=== PATIENT | female | born 1995 | race Caucasian/White ===

== ENCOUNTER 2017-08-18 16:18 | Outpatient (CLI) | payer OTHER ==
[2017-08-18 19:05] LABS: RUPTURE FETAL MEMBRANES NEGATIVE (NEGATIVE)
[2017-08-18] MEDS: LACTATED RINGER'S 1,000 ML IV ×2 (19:26→20:00)
[2017-08-18] MEDS ORDERED: LIDOCAINE 1% (MPF) 30 ML INJ INJ (22:30)
[2017-08-18] MEDS ORDERED: OXYTOCIN 30 UNITS/LR 500 ML IV ×3 (22:30)
[2017-08-18] MEDS ORDERED: METHYLERGONOVINE 0.2 MG INJ IM (22:30)
[2017-08-18] MEDS ORDERED: BUTORPHANOL 2 MG INJ IV (22:30)
[2017-08-18] MEDS ORDERED: CARBOPROST 250 MCG INJ IM (22:30)
[2017-08-18] MEDS ORDERED: MISOPROSTOL 200 MCG TAB PR (22:30)
[2017-08-18] MEDS ORDERED: IBUPROFEN 600 MG TAB PO (22:30)
[2017-08-18 23:17] LABS: ADD MAN DIFF? NO
[2017-08-18 23:25] LABS: BASOPHILS % 0.1 % (0.0-2.0); EOSINOPHILS # 0.1 10^3/ul (0.0-0.5); EOSINOPHILS % 0.6 % (0.0-7.0); HEMATOCRIT 29.2 % (37.0-47.0); HEMOGLOBIN 9.1 g/dl (12.0-16.0); LYMPHOCYTES # 2.1 10^3/ul (0.8-2.9); LYMPHOCYTES % 26.7 % (15.0-51.0); MEAN CORPUSCULAR HEMOGLOBIN 23.9 pg (29.0-33.0); MEAN CORPUSCULAR HGB CONC 31.2 g/dl (32.0-37.0); MEAN CORPUSCULAR VOLUME 76.8 fl (82.0-101.0); MEAN PLATELET VOLUME 11.1 fl (7.4-10.4); MONOCYTE # 0.5 10^3/ul (0.3-0.9); MONOCYTES % 6.6 % (0.0-11.0); NEUTROPHIL # 5.1 10^3/ul (1.6-7.5); NEUTROPHILS % 65.6 % (39.0-77.0); PLATELET COUNT 266 10^3/UL (140-415)
[2017-08-18 23:25] LABS: WHITE BLOOD COUNT 7.8 10^3/ul (4.8-10.8)
[2017-08-18 23:54] LABS: INR 0.93; PROTIME 12.5 Sec (11.9-14.9)
[2017-08-18 23:55] LABS: PARTIAL THROMBOPLASTIN TIME 28.8 Sec (25.0-35.0)
[2017-08-19] MEDS: LACTATED RINGER'S 1,000 ML IV ×2 (00:12→03:45)
[2017-08-19 00:42] LABS: HEPATITIS B SURFACE ANTIGEN NEGATIVE (NEGATIVE)
[2017-08-19 15:00] LABS: RAPID PLASMA REAGIN NONREACTIVE (NR)
== END 2017-08-19 11:45 | disposition home or self-care (01) ==
LOC: L-D 08-19 02:31 → OBT 16:18 → L-D 16:19 → OBT 22:30 → L-D 22:30
DX: O42.913 Preterm premature rupture of membranes, unspecified as to length of time between rupture and onset of labor, third trimester (principal); Z3A.37 37 weeks gestation of pregnancy
CPT/HCPCS: 36415; 76815; 76818; 76820; 84112; 85025; 85610; 85730; 86592; 86850; 86900; 86901; 87340; 96360; 96361

== ENCOUNTER 2017-08-29 15:33 | Inpatient (IN) | payer OTHER ==
[2017-08-29] MEDS ORDERED: OXYTOCIN 30 UNITS/LR 500 ML IV (16:00)
[2017-08-29] MEDS ORDERED: MISOPROSTOL 200 MCG TAB PR (16:00)
[2017-08-29] MEDS ORDERED: CARBOPROST 250 MCG INJ IM (16:00)
[2017-08-29 16:14] LABS: ADD MAN DIFF? NO
[2017-08-29] MEDS: BUTORPHANOL 2 MG INJ IV (16:16)
[2017-08-29] MEDS: LACTATED RINGER'S 1,000 ML IV (16:18)
[2017-08-29 16:19] LABS: WHITE BLOOD COUNT 9.4 10^3/ul (4.8-10.8)
[2017-08-29 16:19] LABS: BASOPHILS % 0.1 % (0.0-2.0); EOSINOPHILS % 0.3 % (0.0-7.0); HEMATOCRIT 34.2 % (37.0-47.0); HEMOGLOBIN 10.7 g/dl (12.0-16.0); LYMPHOCYTES % 21.5 % (15.0-51.0); MEAN CORPUSCULAR HEMOGLOBIN 23.4 pg (29.0-33.0); MEAN CORPUSCULAR HGB CONC 31.3 g/dl (32.0-37.0); MEAN CORPUSCULAR VOLUME 74.8 fl (82.0-101.0); MONOCYTE # 0.6 10^3/ul (0.3-0.9); MONOCYTES % 6.6 % (0.0-11.0); NEUTROPHIL # 6.7 10^3/ul (1.6-7.5); NEUTROPHILS % 71.2 % (39.0-77.0); PLATELET COUNT 300 10^3/UL (140-415); RED BLOOD COUNT 4.57 10^6/ul (4.20-5.40); RED CELL DISTRIBUTION WIDTH 16.4 % (11.5-14.5)
[2017-08-29 16:38] LABS: INR 0.88; PT RATIO 0.9
[2017-08-29 16:39] LABS: PARTIAL THROMBOPLASTIN TIME 25.8 Sec (25.0-35.0)
[2017-08-29 17:18] LABS: HEPATITIS B SURFACE ANTIGEN NEGATIVE (NEGATIVE)
[2017-08-29] MEDS: OXYTOCIN 30 UNITS/LR 500 ML IV ×4 (17:47→20:55)
[2017-08-29] MEDS: LIDOCAINE 1% (MPF) 30 ML INJ INJ (17:47)
[2017-08-29] MEDS: METHYLERGONOVINE 0.2 MG INJ IM (17:47)
[2017-08-29] MEDS: IBUPROFEN 600 MG TAB PO ×2 (18:12→23:32)
[2017-08-29] MEDS: OXYCODONE/ACETAMINOPHEN (5/325) TAB PO (19:10)
[2017-08-29] MEDS ORDERED: DIBUCAINE 1% 30 GM OINT PR (21:00)
[2017-08-29] MEDS ORDERED: ACETAMINOPHEN 325 MG TAB PO (21:00)
[2017-08-29] MEDS ORDERED: OXYCODONE/ASPIRIN (4.88/325) TAB PO ×2 (21:00)
[2017-08-29] MEDS ORDERED: ONDANSETRON 4 MG INJ IV (21:00)
[2017-08-29] MEDS ORDERED: HYDROCODONE/APAP (5/325) TAB PO (21:00)
[2017-08-29 22:02] LABS: RAPID PLASMA REAGIN NONREACTIVE (NR)
[2017-08-29] MEDS: BENZOCAINE 20% 56 ML SPRAY TOP (22:02)
[2017-08-29] MEDS: LANOLIN 7 GM TUBE TOP (22:02)
[2017-08-29] MEDS: SENNA/DOCUSATE NA (8.6MG/50MG) TAB PO (22:02)
[2017-08-29] MEDS: WITCH HAZEL/GLYCERIN PAD PR (22:02)
[2017-08-30] MEDS: HYDROCODONE/APAP (5/325) TAB PO (02:45)
[2017-08-30] MEDS: IBUPROFEN 600 MG TAB PO ×3 (06:17→18:25)
[2017-08-30 09:01] LABS: ADD MAN DIFF? NO
[2017-08-30] MEDS: SENNA/DOCUSATE NA (8.6MG/50MG) TAB PO ×2 (09:01→21:29)
[2017-08-30 09:04] LABS: WHITE BLOOD COUNT 9.8 10^3/ul (4.8-10.8)
[2017-08-30 09:04] LABS: BASOPHILS % 0.2 % (0.0-2.0); EOSINOPHILS # 0.1 10^3/ul (0.0-0.5); EOSINOPHILS % 0.6 % (0.0-7.0); HEMOGLOBIN 9.5 g/dl (12.0-16.0); LYMPHOCYTES # 2.1 10^3/ul (0.8-2.9); LYMPHOCYTES % 21.3 % (15.0-51.0); MEAN CORPUSCULAR HEMOGLOBIN 23.9 pg (29.0-33.0); MEAN CORPUSCULAR HGB CONC 31.7 g/dl (32.0-37.0); MEAN CORPUSCULAR VOLUME 75.4 fl (82.0-101.0); MEAN PLATELET VOLUME 11.3 fl (7.4-10.4); MONOCYTE # 0.8 10^3/ul (0.3-0.9); MONOCYTES % 8.4 % (0.0-11.0); NEUTROPHIL # 6.8 10^3/ul (1.6-7.5); NEUTROPHILS % 69.2 % (39.0-77.0); PLATELET COUNT 230 10^3/UL (140-415); RED BLOOD COUNT 3.98 10^6/ul (4.20-5.40); RED CELL DISTRIBUTION WIDTH 16.7 % (11.5-14.5)
[2017-08-30] MEDS: WITCH HAZEL/GLYCERIN PAD PR (22:12)
[2017-08-31] MEDS: IBUPROFEN 600 MG TAB PO ×4 (00:03→17:56)
[2017-08-31] MEDS: SENNA/DOCUSATE NA (8.6MG/50MG) TAB PO (09:28)
[2017-08-31] MEDS: MEASLES,MUMPS,RUBELLA VACCINE INJ SC* (15:33)
[2017-08-31] MEDS: WITCH HAZEL/GLYCERIN PAD PR (18:55)
[2017-09-01 12:41] LABS: RUBELLA ANTIBODY - IGG <0.90 index; RUBELLA ANTIBODY - IGM <20.00 AU/mL
== END 2017-08-31 19:45 | disposition home or self-care (01) | DRG 775 ==
LOC: OBT 15:33 → L-D 15:34 → OBT 15:51 → L-D 15:35 → PP1 20:52
PROVIDERS: Obstetrics & Gynecology
PROC: 10E0XZZ Delivery of Products of Conception, External Approach (ICD-10-PCS; principal; 2017-08-29)
PROC: 3E0234Z Introduction of Serum, Toxoid and Vaccine into Muscle, Percutaneous Approach (ICD-10-PCS; 2017-08-31)
DX: O70.0 First degree perineal laceration during delivery (principal); O69.81X0 Labor and delivery complicated by cord around neck, without compression, not applicable or unspecified; Z3A.38 38 weeks gestation of pregnancy; Z37.0 Single live birth; Z23 Encounter for immunization
CPT/HCPCS: 85025; 85610; 85730; 86592; 86762; 86850; 86900; 86901; 87340